=== PATIENT | male | born 1955 | race Two or more races ===

== ENCOUNTER 2024-10-11 09:07 | Emergency (ER) | payer MEDICARE, MEDICAID, SELFPAY ==
[2024-10-11 09:27] VITALS: BP 154/76; PULSE 63; RESP 16; TEMP 37.2; O2SAT 99
--- NOTE | 2024-10-11 09:43 | XR_ITS ---
Examination: Right knee 4 views TECHNIQUE: AP oblique lateral axial right knee 4 views Exam date and time: October 11, 2024 1012 hours INDICATIONS: Patient fell yesterday with injury to the knee, knee pain FINDINGS: Acute patellar fracture with 3.8 cm separation of the main fracture fragments Tiny bone fragments in the soft tissue Femur proximal tibia and fibula intact IMPRESSION: Acute comminuted displaced patellar fracture
--- NOTE | 2024-10-11 11:40 | EDRME_ITS ---
Rapid Medical Screening Exam RME Arrival date/time: 10/11/24 09:07 69-year-old male with no known medical history presents to the emergency room with a chief complaint of right knee tenderness and swelling after a ground- level fall that occurred yesterday afternoon. I have greeted and performed a focused initial assessment of this patient. A comprehensive ED assessment and evaluation of the patient, analysis of all test results, and completion of the medical decision making process will be conducted by additional ED providers. Chief Complaint: Fall Time Seen by Provider: 10/11/24 09:17 Vital signs: Vital Signs Temperature 98.9 F 10/11/24 09:27 Pulse Rate 63 10/11/24 09:27 Respiratory Rate 16 10/11/24 09:27 Blood Pressure 154/76 H 10/11/24 09:27 Pulse Oximetry (%) 99 10/11/24 09:27 Oxygen Delivery Method Room Air 10/11/24 09:27 Vital signs reviewed by provider: Yes
[2024-10-11 14:02] VITALS: BP 157/77; PULSE 70; RESP 18; TEMP 36.8; O2SAT 98
--- NOTE | 2024-10-11 14:20 | PD.EDADULT ---
ED General RME/HPI General Chief complaint: Fall Stated complaint: FELL ON R) KNEE LAST NIGHT Time Seen by Provider: 10/11/24 09:17 Arrival date/time: 10/11/24 09:07 RME / HPI RME / HPI narrative: Patient is a 69 years old male with no known past medical history presented to the ED complaining of right knee tenderness and swelling after a ground-level fall that occurred yesterday afternoon. He reports he was feeling completely fine before fall and reports he just tripped. He fell bearing most of his weigh on the right knee and had a sharp pain. He thought it was just a contusion as his pain resolved later that day. Today morning he and his family noticed his knee being blue and significantly swollen and took him to the ED. Related Data Home Medications ?Medication ?Instructions ?Recorded ?Confirmed amoxicillin 500 mg capsule 1,000 mg PO BID 09/14/23 09/15/23 clarithromycin 500 mg tablet 500 mg PO BID 09/14/23 09/15/23 duloxetine 20 mg capsule,delayed 20 mg PO BID 09/14/23 09/15/23 release gabapentin 100 mg tablet 100 mg PO BID 09/14/23 09/15/23 metronidazole 500 mg tablet 500 mg PO BID 09/14/23 09/15/23 Previous Rx's ?Medication ?Instructions ?Recorded hydrocodone 10 mg-acetaminophen 1 tab PO Q6H PRN pain #28 tabs 09/15/23 325 mg tablet Allergies Allergy/AdvReac Type Severity Reaction Status Date / Time No Known Allergies Allergy Verified 10/11/24 09:11 Review of Systems Review of Systems Systems Reviewed: All systems reviewed, normal except as documented ED Exam Narrative Physical exam: Gen: Well-developed and well-nourished elderly male. HEENT: NCAT, PERRLA, EOMI, MMM, anicteric conjunctivae. CVS: normal S1 and S2. RRR. No M/R/G. Resp: CTA B/L. No rhonchi, rales, crackles or wheezing. Abd: soft, non-tender, non-distended. BS+ in all 4 quadrants. MSK: Good ROM in BUE. Right knee is swollen with bluish discoloration, tender to touch. No edema or rash. Neuro: CN II-XII grossly intact. Strength 5/5 in BUE. Alert and oriented x3. Psych: appropriate mood and affect. Course Quality Measures none Orders Category Date Time Status Splint / Immobilizer STAT Care 10/11/24 14:19 Completed XR knee comp RT 4V Stat Exams 10/11/24 09:43 Completed Vital Signs Vital signs: Vital Signs Temperature 98.9 F 10/11/24 09:27 Pulse Rate 63 10/11/24 09:27 Respiratory Rate 16 10/11/24 09:27 Blood Pressure 154/76 H 10/11/24 09:27 Pulse Oximetry (%) 99 10/11/24 09:27 Oxygen Delivery Method Room Air 10/11/24 09:27 MDM Patient data External records reviewed:: [facility] previous records Clinical information provided by:: patient and family Social determinants that could affect healthcare access:: none Patient has the following chronic illnesses:: na How is presenting disease/condition affected by chronic disease/condition?: no chronic disease Evaluation data The following diagnostics were reviewed and interpreted by me:: radiology exam(s) Lab and/or radiology exams considered but not ordered:: CT scan Interpretation Summary: Acute comminuted displaced patellar fracture on XR. Medications Medications considered but not ordered:: na Medication administrations:: na Consultations Consultation(s) initiated? (list below): No Diagnosis Differential Diagnosis ED Complaint MDM: patellar fracture, femoral fracture, contusion Most likely diagnosis given after review of the tests above:: Patellar fracture Admission Indicated Admission indicated?: not indicated Explain why admission is indicated or not indicated:: Patient has closed patellar fracture and will need to follow up with orthopedic surgeon for surgery planning. Admission Request Was there a request for admission?: No Disposition Plan Disposition Plan: Discharge Discharge Attestation Discharge Attestation: The patient and all family members were given an opportunity to ask questions and understood the discharge instructions. Discharge instructions specifically effects, indications for sooner follow up or return to the emergency department, and the expected course of current diagnosis. Patient condition: Stable Medical Decision Making MDM Narrative MDM Narrative: This 69-year-old male with no significant past medical history presented with right knee pain and swelling following a ground-level fall. The patient fell while tripping and bearing most of his weight on the right knee. Initially, his sharp pain resolved, but by the next morning, noticeable swelling and bluish discoloration prompted his visit to the ED. Examination revealed a swollen, tender right knee with an X-ray confirming an acute comminuted displaced patellar fracture. No systemic or other injuries were identified. The patient has been stabilized with an immobilizer placed and instructions to avoid weight-bearing on the affected leg. He has been counseled to follow up with an orthopedic surgeon for surgical planning and to see his primary care provider within a week for continuity of care. Pain management with [id number] Tylenol has been recommended, and he was advised to return to the ED if symptoms worsen. Proper follow-up and adherence to these recommendations are critical for optimal recovery. Differential Diagnosis Differential Diagnosis: patellar fracture, femoral fracture, contusion Discharge Plan Plan Patient Disposition: HOME (Self Care) Patient condition on transfer: Stable Prescriptions/Referrals Prescriptions/Med Rec: No Action amoxicillin 500 mg Capsule 1,000 mg PO BID clarithromycin 500 mg Tablet 500 mg PO BID metronidazole 500 mg Tablet 500 mg PO BID duloxetine 20 mg Capsule,Delayed Release(Dr/Ec) 20 mg PO BID gabapentin 100 mg Tablet 100 mg PO BID hydrocodone-acetaminophen 10-325 mg tablet 1 tab PO Q6H MDD 4 PRN (Reason: pain) Qty: 28 0RF Referrals: Bk Drake MD [Primary Care Provider] - In 1 week Von Hernandez MD [Physician] - Problem List Clinical Impression: Patellar fracture Patient/Caregiver Discharge Instructions Education Materials: First Aid: Sprains and Fractures, ED Patella Fracture Additional Instructions: Follow up with PCP within 1 week. Call and schedule appointment with orthopedic surgeon for surgery planning. Phone number and address provided on additional form. Do not bear weight on right leg. Do not remove immobilizer until seen by orthopedic surgeon. Take over the counter Tylenol for pain as needed. Return to the ED if symptoms recur or worsen. Print Language: Guatemalan Stand Alone Forms: [employer] Info., Patient Portal Info Letter
== END 2024-10-11 15:56 | disposition home or self-care (01) ==
PROVIDERS: Emergency Provider Emergency Medicine; PCP Family Medicine
DX: S82.041A Displaced comminuted fracture of right patella, initial encounter for closed fracture (principal); W01.0XXA Fall on same level from slipping, tripping and stumbling without subsequent striking against object, initial encounter
CPT/HCPCS: 73564; 99283

== ENCOUNTER 2024-10-18 12:26 | Emergency (ER) | payer MEDICARE, MEDICAID, SELFPAY ==
[2024-10-18 12:58] VITALS: BP 152/92; PULSE 80; RESP 18; TEMP 36.5; O2SAT 99; BMI 22.3
--- NOTE | 2024-10-18 13:59 | PD.EDADULT ---
ED General RME/HPI General Chief complaint: General Adult/Misc Complain Stated complaint: UNABLE TO URINATE & HAVE BM. HAD SURG R) KNEE 10/17 Time Seen by Provider: 10/18/24 13:42 Arrival date/time: 10/18/24 12:26 69-year-old male presents to the emergency department today for complaints of urinary retention status post right knee surgery yesterday Limitations: no limitations Related Data Home Medications ?Medication ?Instructions ?Recorded ?Confirmed amoxicillin 500 mg capsule 1,000 mg PO BID 09/14/23 09/15/23 clarithromycin 500 mg tablet 500 mg PO BID 09/14/23 09/15/23 duloxetine 20 mg capsule,delayed 20 mg PO BID 09/14/23 09/15/23 release gabapentin 100 mg tablet 100 mg PO BID 09/14/23 09/15/23 metronidazole 500 mg tablet 500 mg PO BID 09/14/23 09/15/23 Previous Rx's ?Medication ?Instructions ?Recorded hydrocodone 10 mg-acetaminophen 1 tab PO Q6H PRN pain #28 tabs 09/15/23 325 mg tablet docusate sodium 100 mg capsule 100 mg PO BID 7 days #14 caps 10/18/24 Allergies Allergy/AdvReac Type Severity Reaction Status Date / Time No Known Allergies Allergy Verified 10/21/24 10:12 Review of Systems Review of Systems Systems Reviewed: All systems reviewed, normal except as documented Constitutional Constitutional: Reports system reviewed and no additional complaints, except as documented, Denies fever(s) and Denies headache(s) Eyes Eyes: Reports system reviewed and no additional complaints, except as documented and Denies blurry vision ENT Ears, Nose, Mouth, and Throat: Reports system reviewed and no additional complaints, except as documented, Denies headache(s), Denies nasal congestion and Denies nasal discharge Cardiovascular Cardiovascular: Reports system reviewed and no additional complaints, except as documented, Denies chest pain and Denies dyspnea Respiratory Respiratory: Reports system reviewed and no additional complaints, except as documented, Denies chest congestion, Denies cough and Denies dyspnea Gastrointestinal Gastrointestinal: Reports system reviewed and no additional complaints, except as documented and Denies abdominal pain Genitourinary Genitourinary: Reports system reviewed and no additional complaints, except as documented, Reports difficulty urinating, Denies dysuria and Denies flank pain Integumentary/Breasts Skin/Breast: Reports system reviewed and no additional complaints, except as documented and Denies rash Neurologic Neurologic: Reports system reviewed and no additional complaints, except as documented, Reports as per HPI and Denies headache(s) Past Medical History Past Medical History NEUROLOGIC: Negative Neurological Disorders or Seizures CARDIAC: Negative Cardiac Disorders or Congestive Heart Failure RESPIRATORY: Negative Chronic Obstructive Pulmonary Disease (COPD) GASTROINTESTINAL: Positive Gastrointestinal Disorders and Gastroesophageal Reflux Disease GENITOURINARY: Positive Inguinal Hernia (bilateral); Negative Genitourinary Disorders or Renal Disease MUSCULOSKELETAL: Positive Musculoskeletal Disorders and Arthritis ENDOCRINE: Negative Endocrine Disorders, Diabetes Mellitus Type 1 or Diabetes Mellitus Type 2 HEMATOLOGIC: Negative Blood Disorders PSYCHO/SOCIAL: Positive Recreational Drug Use (MJ); Negative Depression OTHER HISTORY: Positive Chicken Pox and Measles; Negative Hospitalization, Autoimmune Disease, Shingles, Blood Transfusions, Blood Transfusion Reaction, Anesthesia Reactions, MRSA or Cancer Family History FAMILY HISTORY: Positive Family Surgery; Negative Family Psychiatric Problems, Family Respiratory Disorders, Family Cardiac Disorders, Family Gastrointestinal Problems, Family Cancer or Family Anesthesia Reaction Surgical History SURGICAL: Positive Nose Surgery Social History SMOKING STATUS: Never smoker ED Exam General Limitations: Present no limitations General appearance: Present alert and in no apparent distress Head Head exam: Present atraumatic, normocephalic and normal inspection Eye Eye exam: Present normal appearance, PERRL and EOMI; Absent conjunctival injection ENT ENT exam: Present normal exam, normal oropharynx and mucous membranes moist Neck Neck exam: Present normal inspection, full ROM and trachea midline Chest Chest inspection: Present normal inspection and symmetric chest wall rise Respiratory Respiratory exam: Present normal lung sounds bilaterally; Absent respiratory distress Cardiovascular Cardiovascular exam: Present regular rate, normal rhythm and normal heart sounds Abdominal Exam Abdominal exam: Present soft and normal bowel sounds; Absent distention, tenderness, guarding, rebound or rigidity Extremities Exam Extremities exam: Present normal inspection and full ROM Back Exam Back exam: Present normal inspection and full ROM Neurological Exam Neurological exam: Present alert, oriented X3 and CN II-XII intact Psychiatric Psychiatric exam: Present normal affect and normal mood Skin Skin exam: Present warm, dry, intact and normal color Course Quality Measures none Orders Category Date Time Status Manuel [Urinary Catheter] NOW Care 10/18/24 13:00 Completed Vital Signs Vital signs: Vital Signs Temperature 97.7 F 10/18/24 12:58 Pulse Rate 80 10/18/24 12:58 Respiratory Rate 18 10/18/24 12:58 Blood Pressure 152/92 H 10/18/24 12:58 Pulse Oximetry (%) 99 10/18/24 12:58 Oxygen Delivery Method Room Air 10/18/24 12:58 O2 saturation 99% room air within normal limits [facility] Patient data External records reviewed:: [facility] previous records Clinical information provided by:: patient Social determinants that could affect healthcare access:: none Patient has the following chronic illnesses:: See history How is presenting disease/condition affected by chronic disease/condition?: caused by Evaluation data The following diagnostics were reviewed and interpreted by me:: other (specify) (Hey) Lab and/or radiology exams considered but not ordered:: Consider Interpretation Summary: Not ordered Medications Medications considered but not ordered:: Given Medication administrations:: Given Consultations Consultation(s) initiated? (list below): No Diagnosis Differential Diagnosis ED Complaint MDM: UTI, urinary retention, dysuria Most likely diagnosis given after review of the tests above:: Urinary retention Admission Indicated Admission indicated?: not indicated Explain why admission is indicated or not indicated:: No criteria Admission Request Was there a request for admission?: No Disposition Plan Disposition Plan: Discharge Discharge Attestation Discharge Attestation: The patient and all family members were given an opportunity to ask questions and understood the discharge instructions. Discharge instructions specifically effects, indications for sooner follow up or return to the emergency department, and the expected course of current diagnosis. Patient condition: Stable Medical Decision Making MDM Narrative MDM Narrative: 69-year-old male presents to the emergency department today for complaints of urinary retention status post right knee surgery yesterday Manuel catheter placed at this time patient had significant bout of urinary output Patient reports that he feels much better and would like to go home Patient struck to follow-up with his surgeon and for any worsening symptoms or concerns to return to the ER immediately for further evaluation Differential Diagnosis Differential Diagnosis: UTI, urinary retention, dysuria Medical Records Medical records reviewed: Yes I reviewed the patient's medical records. Discharge Plan Plan Patient Disposition: HOME (Self Care) Disposition Comment: Stable Prescriptions/Referrals Prescriptions/Med Rec: New docusate sodium 100 mg capsule 100 mg PO BID 7 Days Qty: 14 0RF No Action amoxicillin 500 mg Capsule 1,000 mg PO BID clarithromycin 500 mg Tablet 500 mg PO BID metronidazole 500 mg Tablet 500 mg PO BID duloxetine 20 mg Capsule,Delayed Release(Dr/Ec) 20 mg PO BID gabapentin 100 mg Tablet 100 mg PO BID hydrocodone-acetaminophen 10-325 mg tablet 1 tab PO Q6H MDD 4 PRN (Reason: pain) Qty: 28 0RF Referrals: Bk Drake MD [Primary Care Provider] - 10/19/24 Problem List Clinical Impression: Acute urinary retention Patient/Caregiver Discharge Instructions Education Materials: ED Urinary Retention, Male Additional Instructions: Please follow up with your primary care doctor in the next 24-48hrs for any worsening symptoms return here immediately Print Language: Sinhala Stand Alone Forms: [employer] Info., Patient Portal Info Letter PA/MECHANICAL DESIGN DRAFTER Supervising Physician PA/MECHANICAL DESIGN DRAFTER Supervising Physician: Dr. houston
== END 2024-10-18 14:08 | disposition home or self-care (01) ==
PROVIDERS: Emergency Provider Family Medicine; PCP Family Medicine
DX: R33.9 Retention of urine, unspecified (principal)
CPT/HCPCS: 51702; 99283

== ENCOUNTER 2024-10-21 10:08 | Emergency (ER) | payer MEDICARE, MEDICAID, SELFPAY ==
[2024-10-21 10:09] VITALS: BMI 22.3
[2024-10-21 10:56] VITALS: BP 150/84; PULSE 71; RESP 19; TEMP 36.9; O2SAT 99; BMI 32.5
--- NOTE | 2024-10-21 11:14 | PD.EDURI ---
Upper Respiratory Inf. RME/HPI General Stated Complaint: LOPEZ IS LEAKING Time Seen by Provider: 10/21/24 11:10 Arrival date/time: 10/21/24 10:08 Limitations: no limitations RME / HPI RME / HPI Narrative: 69-year-old male came in for repositioning of Lopez. States was placed 3 days ago here but reports overnight started leaking was going to go to primary care doctor but they could not see him today. States he knows he still needs it as he is still having trouble voiding without the catheter and is also still constipated. Is taking Colace but only 1 a day and thinks he is taking it wrong. No fever. No burning at the catheter site. No blood noted in urine. Related Data Home Medications ?Medication ?Instructions ?Recorded ?Confirmed amoxicillin 500 mg capsule 1,000 mg PO BID 09/14/23 09/15/23 clarithromycin 500 mg tablet 500 mg PO BID 09/14/23 09/15/23 duloxetine 20 mg capsule,delayed 20 mg PO BID 09/14/23 09/15/23 release gabapentin 100 mg tablet 100 mg PO BID 09/14/23 09/15/23 metronidazole 500 mg tablet 500 mg PO BID 09/14/23 09/15/23 Previous Rx's ?Medication ?Instructions ?Recorded hydrocodone 10 mg-acetaminophen 1 tab PO Q6H PRN pain #28 tabs 09/15/23 325 mg tablet docusate sodium 100 mg capsule 100 mg PO BID 7 days #14 caps 10/18/24 Allergies Allergy/AdvReac Type Severity Reaction Status Date / Time No Known Allergies Allergy Verified 10/21/24 10:12 Review of Systems Review of Systems Systems Reviewed: All systems reviewed, normal except as documented Constitutional Constitutional: Denies fever(s) Genitourinary Genitourinary: Reports as per HPI ED Exam General Limitations: Present no limitations General appearance: Present alert and in no apparent distress Eye Eye exam: Present normal appearance, PERRL and EOMI Respiratory Respiratory exam: Present normal lung sounds bilaterally Cardiovascular Cardiovascular exam: Present regular rate, normal rhythm and normal heart sounds Abdominal Exam Abdominal exam: Present soft and normal bowel sounds exam: Present other (Uncircumcised penis no testicular pain leaking from urethra, no blood in output) Extremities Exam Extremities exam: Present normal inspection and full ROM Back Exam Back exam: Present normal inspection and full ROM Psychiatric Psychiatric exam: Present normal affect and normal mood Skin Skin exam: Present warm, dry, intact and normal color Course Quality Measures none Orders Category Date Time Status Lopez [Urinary Catheter, Remove] ONCE Care 10/21/24 11:12 Completed Lopez to Leg Bag Routine Care 10/21/24 11:13 Ordered Vital Signs Vital signs: Vital Signs Temperature 98.5 F 10/21/24 10:56 Pulse Rate 71 10/21/24 10:56 Respiratory Rate 19 10/21/24 10:56 Blood Pressure 150/84 H 10/21/24 10:56 Pulse Oximetry (%) 99 10/21/24 10:56 Oxygen Delivery Method Room Air 10/21/24 10:56 Upper Respiratory Infection Patient data External records reviewed:: [facility] previous records Clinical information provided by:: patient Social determinants that could affect healthcare access:: other (specify) (Limited transportation, elderly patient with difficulty accessing care) Patient has the following chronic illnesses:: History of urinary retention recent surgery How is presenting disease/condition affected by chronic disease/condition?: exacerbated by Evaluation data The following diagnostics were reviewed and interpreted by me:: other (specify) (None) Lab and/or radiology exams considered but not ordered:: Diagnosis appears clinical and does not warrant further imaging at this time Interpretation Summary: No imaging to interpret Medications / Prescriptions Medications or Prescriptions considered but not ordered:: Antibiotics were considered but unlikely necessary Medication administrations:: None other than new Lopez Consultations Consultation(s) initiated? (list below): No Diagnosis Upper Respiratory Differential Diagnosis: other (Cancer, BPH, acute urinary retention, UTI,) Most likely diagnosis given after review of the tests above:: Lopez catheter malfunction Admission Indicated Admission indicated?: not indicated Admission Request Was there a request for admission?: No Disposition Plan Disposition Plan: Discharge Discharge Attestation Discharge Attestation: The patient and all family members were given an opportunity to ask questions and understood the discharge instructions. Discharge instructions specifically effects, indications for sooner follow up or return to the emergency department, and the expected course of current diagnosis. Patient condition: Stable Discharge Plan Plan Patient Disposition: HOME (Self Care) Disposition Comment: Follow-up PCP in 2 to 3 days Prescriptions/Referrals Prescriptions/Med Rec: No Action amoxicillin 500 mg Capsule 1,000 mg PO BID clarithromycin 500 mg Tablet 500 mg PO BID metronidazole 500 mg Tablet 500 mg PO BID duloxetine 20 mg Capsule,Delayed Release(Dr/Ec) 20 mg PO BID gabapentin 100 mg Tablet 100 mg PO BID hydrocodone-acetaminophen 10-325 mg tablet 1 tab PO Q6H MDD 4 PRN (Reason: pain) Qty: 28 0RF docusate sodium 100 mg capsule 100 mg PO BID 7 Days Qty: 14 0RF Referrals: Bk Drake MD [Primary Care Provider] - In 1 week Problem List Clinical Impression: Acute urinary retention Patient/Caregiver Discharge Instructions Education Materials: ED Urinary Retention, Male Print Language: Urdu Stand Alone Forms: [employer] Info., Patient Portal Info Letter PA/DETECTIVE PRECINCT Supervising Physician PA/DETECTIVE PRECINCT Supervising Physician: Dr. ayala
== END 2024-10-21 12:58 | disposition home or self-care (01) ==
PROVIDERS: Emergency Provider Emergency Medicine; PCP Family Medicine
DX: R33.9 Retention of urine, unspecified (principal)
CPT/HCPCS: 99281

== ENCOUNTER 2024-11-22 08:55 | Emergency (ER) | payer MEDICARE, MEDICAID, SELFPAY ==
[2024-11-22 09:05] VITALS: BP 168/81; PULSE 73; RESP 18; TEMP 36.6; O2SAT 98; BMI 22.6
--- NOTE | 2024-11-22 09:21 | PD.EDADULT ---
ED General RME/HPI General Chief complaint: General Adult/Misc Complain Stated complaint: LOPEZ CATHETER LEAKING Time Seen by Provider: 11/22/24 09:01 Arrival date/time: 11/22/24 08:55 69-year-old male presents the emergency department today for complaints of Lopez catheter leaking patient reports he had a Lopez catheter placed approxi-1 month ago after inability to urinate after a surgical procedure Limitations: no limitations Related Data Home Medications ?Medication ?Instructions ?Recorded ?Confirmed amoxicillin 500 mg capsule 1,000 mg PO BID 09/14/23 09/15/23 clarithromycin 500 mg tablet 500 mg PO BID 09/14/23 09/15/23 duloxetine 20 mg capsule,delayed 20 mg PO BID 09/14/23 09/15/23 release gabapentin 100 mg tablet 100 mg PO BID 09/14/23 09/15/23 metronidazole 500 mg tablet 500 mg PO BID 09/14/23 09/15/23 Previous Rx's ?Medication ?Instructions ?Recorded hydrocodone 10 mg-acetaminophen 1 tab PO Q6H PRN pain #28 tabs 09/15/23 325 mg tablet Allergies Allergy/AdvReac Type Severity Reaction Status Date / Time No Known Allergies Allergy Verified 11/22/24 08:59 Review of Systems Review of Systems Systems Reviewed: All systems reviewed, normal except as documented Constitutional Constitutional: Reports system reviewed and no additional complaints, except as documented, Denies fever(s) and Denies headache(s) Eyes Eyes: Reports system reviewed and no additional complaints, except as documented and Denies blurry vision ENT Ears, Nose, Mouth, and Throat: Reports system reviewed and no additional complaints, except as documented, Denies headache(s), Denies nasal congestion and Denies nasal discharge Cardiovascular Cardiovascular: Reports system reviewed and no additional complaints, except as documented, Denies chest pain and Denies dyspnea Respiratory Respiratory: Reports system reviewed and no additional complaints, except as documented, Denies chest congestion, Denies cough and Denies dyspnea Gastrointestinal Gastrointestinal: Reports system reviewed and no additional complaints, except as documented and Denies abdominal pain Genitourinary Genitourinary: Reports system reviewed and no additional complaints, except as documented and Reports other (Lopez catheter in place) Integumentary/Breasts Skin/Breast: Reports system reviewed and no additional complaints, except as documented and Denies rash Neurologic Neurologic: Reports system reviewed and no additional complaints, except as documented, Reports as per HPI and Denies headache(s) Past Medical History Past Medical History NEUROLOGIC: Negative Neurological Disorders or Seizures CARDIAC: Negative Cardiac Disorders or Congestive Heart Failure RESPIRATORY: Negative Chronic Obstructive Pulmonary Disease (COPD) GASTROINTESTINAL: Positive Gastrointestinal Disorders and Gastroesophageal Reflux Disease GENITOURINARY: Positive Inguinal Hernia (bilateral); Negative Genitourinary Disorders or Renal Disease MUSCULOSKELETAL: Positive Musculoskeletal Disorders and Arthritis ENDOCRINE: Negative Endocrine Disorders, Diabetes Mellitus Type 1 or Diabetes Mellitus Type 2 HEMATOLOGIC: Negative Blood Disorders PSYCHO/SOCIAL: Positive Recreational Drug Use (MJ); Negative Depression OTHER HISTORY: Positive Chicken Pox and Measles; Negative Hospitalization, Autoimmune Disease, Shingles, Blood Transfusions, Blood Transfusion Reaction, Anesthesia Reactions, MRSA or Cancer Family History FAMILY HISTORY: Positive Family Surgery; Negative Family Psychiatric Problems, Family Respiratory Disorders, Family Cardiac Disorders, Family Gastrointestinal Problems, Family Cancer or Family Anesthesia Reaction Surgical History SURGICAL: Positive Nose Surgery Social History SMOKING STATUS: Current every day smoker ED Exam General Limitations: Present no limitations General appearance: Present alert and in no apparent distress Head Head exam: Present atraumatic, normocephalic and normal inspection Eye Eye exam: Present normal appearance, PERRL and EOMI; Absent conjunctival injection ENT ENT exam: Present normal exam, normal oropharynx and mucous membranes moist Neck Neck exam: Present normal inspection, full ROM and trachea midline Chest Chest inspection: Present normal inspection and symmetric chest wall rise Respiratory Respiratory exam: Present normal lung sounds bilaterally; Absent respiratory distress Cardiovascular Cardiovascular exam: Present regular rate, normal rhythm and normal heart sounds Abdominal Exam Abdominal exam: Present soft and normal bowel sounds; Absent distention, tenderness, guarding, rebound or rigidity exam: Present normal testicular lie; Absent testicular tenderness, urethral discharge or scrotal swelling Extremities Exam Extremities exam: Present normal inspection and full ROM Back Exam Back exam: Present normal inspection and full ROM Neurological Exam Neurological exam: Present alert, oriented X3 and CN II-XII intact Psychiatric Psychiatric exam: Present normal affect and normal mood Skin Skin exam: Present warm, dry, intact and normal color; Absent rash Course Quality Measures none Orders Category Date Time Status Lopez [Urinary Catheter, Remove] NOW Care 11/22/24 09:21 Completed Vital Signs Vital signs: Vital Signs Temperature 97.9 F 11/22/24 09:05 Pulse Rate 73 11/22/24 09:05 Respiratory Rate 18 11/22/24 09:05 Blood Pressure 168/81 H 11/22/24 09:05 Pulse Oximetry (%) 98 11/22/24 09:05 Oxygen Delivery Method Room Air 11/22/24 09:05 O2 saturation 98% room air within the limits Discharge Plan Plan Patient Disposition: HOME (Self Care) Discharge Disposition comment: Stable Prescriptions/Referrals Prescriptions/Med Rec: No Action amoxicillin 500 mg Capsule 1,000 mg PO BID clarithromycin 500 mg Tablet 500 mg PO BID metronidazole 500 mg Tablet 500 mg PO BID duloxetine 20 mg Capsule,Delayed Release(Dr/Ec) 20 mg PO BID gabapentin 100 mg Tablet 100 mg PO BID hydrocodone-acetaminophen 10-325 mg tablet 1 tab PO Q6H MDD 4 PRN (Reason: pain) Qty: 28 0RF Problem List Clinical Impression: Lopez catheter problem Patient/Caregiver Discharge Instructions Additional Instructions: Please see how you do without catheter if you have inability to urinate within next 6 to 8 hours please return for repeat Lopez catheter placement Print Language: Mongolian Stand Alone Forms: Vivienne Award Info., Patient Portal Info Letter PA/HANDLE ASSEMBLER Supervising Physician PA/HANDLE ASSEMBLER Supervising Physician: dr workman MDM Narrative MDM hospital course (for use when minimal MDM required): 69-year-old male presents the emergency department today for complaints of Lopez catheter leaking patient reports he had a Lopez catheter placed approxi-1 month ago after inability to urinate after a surgical procedure Patient reports has had no follow-up for his Lopez catheter and does not know the plan for the future with his catheter. I explained to the patient that we can attempt to remove the catheter at this time and see if he can urinate on his own as you do not be able to urinate within the next 6 to 8 hours she is instructed return patient is happy with this option states should he not be to urinate he will return Lopez catheter move without difficulty Clinical Information Provided by: none Medical Records reviewed [facility] Meds/Rx considered, not ordered None Labs/Rad/Tests considered, not ordered None Chronic Illness/Social Conditions which may negatively complicate care or outcome(s)-explain: None or not applicable EKG EKG not done Labs Labs: none Imaging Imaging interpretation: none or see narrative above Medication Administration(s) none Diagnosis Differential Diagnosis ED Complaint MDM: Urinary retention, Lopez catheter leaking, Lopez catheter problem
--- NOTE | 2024-11-22 09:25 | PC.NURSE ---
Pt here for leaking richards catheter. States he originally had the catheter placed about a month ago due to urinary retention following a knee surgery and the retention was said to be related to pain medication. Pt stated that his pain medication intake is less, the original constipation that he had from the pain medication has subsided. Rey HOOKER and RN explained to the pt that we will remove the catheter, as pt also had no follow up plans for the catheter, and if he does not urinate by 1800 or he starts to feel extreme pressure/the need to urinate that he is to return to the ED for new richards catheter placement. Pt stated he understood
== END 2024-11-22 09:34 | disposition home or self-care (01) ==
LOC: SERX 09:28
PROVIDERS: Emergency Provider Emergency Medicine; PCP Family Medicine
DX: T83.018A Breakdown (mechanical) of other urinary catheter, initial encounter (principal)
CPT/HCPCS: 99282

== ENCOUNTER → 2024-11-30 | Outpatient (CLI) | payer MEDICARE, MEDICAID, SELFPAY ==
--- NOTE | 2024-11-30 17:04 | XR_ITS ---
Examination: Knee, right , 3 views Technique: Knee AP, lateral, oblique 3 views Date and time of exam: November 30, 2024 1830 hours Comparison October 11, 2024 INDICATIONS: Status post operative reduction internal fixation fracture right patella FINDINGS: Operative reduction internal fixation fractures right patella with satisfactory alignment and significant healing Severe osteopenia IMPRESSION: Operative reduction internal fixation fractures right patella with satisfactory alignment and significant healing
== END | disposition home or self-care (01) ==
PROVIDERS: PCP Family Medicine; Referring Provider Orthopaedic Surgery; Visit Provider Orthopaedic Surgery
DX: S82.001D Unspecified fracture of right patella, subsequent encounter for closed fracture with routine healing (principal); X58.XXXD Exposure to other specified factors, subsequent encounter; Z98.890 Other specified postprocedural states
CPT/HCPCS: 73562

== ENCOUNTER → 2025-03-05 | Outpatient (CLI) | payer MEDICARE, MEDICAID, SELFPAY ==
--- NOTE | 2025-03-05 | XR_ITS ---
Examination: Knee, right , 3 views Technique: Knee AP, lateral, oblique 3 views Date and time of exam: March 05, 2025 1237 hours INDICATIONS: Status post reduction internal fixation patellar fracture 5 months ago FINDINGS: Severe osteopenia. Healed patellar fracture with satisfactory alignment Small knee effusion IMPRESSION: Healed patellar fracture with satisfactory alignment
== END | disposition home or self-care (01) ==
PROVIDERS: PCP Nurse Practitioner; Referring Provider Orthopaedic Surgery; Visit Provider Orthopaedic Surgery
DX: M25.561 Pain in right knee (principal); Z87.81 Personal history of (healed) traumatic fracture
CPT/HCPCS: 73562